=== PATIENT | male | born 1975 | race Caucasian/White ===

== ENCOUNTER 2024-04-22 06:42 | Day surgery (SDC) | payer OTHER ==
[2024-04-22] MEDS ORDERED: Midazolam 1 MG/ML 2 ML SDV ONE (06:55)
[2024-04-22] MEDS ORDERED: fentaNYL 50 MCG/ML SDV ONE (06:55)
[2024-04-22] MEDS ORDERED: Propofol 200 MG/20 ML SDV ONE ×2 (06:55→08:13)
[2024-04-22] MEDS: Lactated Ringers 1,000 ML IV SCH (07:50)
[2024-04-22] MEDS ORDERED: Atropine 0.4 MG/ML SDV ONE (08:09)
== END 2024-04-22 09:45 | disposition home or self-care (01) ==
LOC: JP.SDS 06:42
PROVIDERS: ATTEND Surgery
DX: Z12.11 Encounter for screening for malignant neoplasm of colon (principal); K63.5 Polyp of colon; Z88.0 Allergy status to penicillin
CPT/HCPCS: 45380; J0461; J2250; J2704; J3010; J7120; 00811-QZ; 88305